=== PATIENT | male | born 1980 | race Two or more races ===

== ENCOUNTER 2018-05-27 16:55 | Emergency (ER) | payer MEDICAID, OTHER ==
[~2018-05-27] VITALS: Ht 157.5 cm; Wt 77.1 kg
[2018-05-27 17:12] VITALS: BP 122/65
== END 2018-05-28 01:14 | disposition left against medical advice (07) ==
LOC: ER 17:02
DX: R22.9 Localized swelling, mass and lump, unspecified (principal); H57.12 Ocular pain, left eye; Z53.21 Procedure and treatment not carried out due to patient leaving prior to being seen by health care provider